=== PATIENT | male | born 1990 | race Caucasian/White ===

== ENCOUNTER 2019-09-14 13:01 | Emergency (ER) | payer MEDICAID, MEDICARE, OTHER ==
[~2019-09-14] VITALS: Ht 193 cm; Wt 151.0 kg
[~2019-09-14 13:01] MED LIST: SERT50TA PO
--- NOTE | 2019-09-14 13:21 | NUR ---
PT CO OF LUMP BEHIND LEFT KNEE. HAS LEFT LEG BKA. THE "LUMP HURTS WHEN MY PROSTETIC LEG IS ON AND IT RUBS THE BUMP"
[2019-09-14] MEDS ORDERED: LIDOCAINE 1%, 10ML ONE (16:50)
--- NOTE | 2019-09-14 17:29 | NUR ---
BREAK RN FOR PRIMARY RN'S JAMILAH. PT BACK FROM IR. DRESSING CDI. DR. GUZMAN AT BEDSIDE FOR RECHECK, DISCUSSING POC. PT RESTING COMFORTABLY. DENIES ANY PAIN AND NEED TO USE RESTROONM. VSS. CALL LIGHT IN REACH.
[2019-09-14 17:30] VITALS: BP 121/61
--- NOTE | 2019-09-14 18:06 | NUR ---
REPORT AND CARE BACK TO PRIMARY RN SEMAJ
== END 2019-09-14 18:14 | disposition home or self-care (01) ==
LOC: ED 14:45
DX: L03.116 Cellulitis of left lower limb (principal); F32.9 Major depressive disorder, single episode, unspecified; F17.290 Nicotine dependence, other tobacco product, uncomplicated
CPT/HCPCS: 10160; 76882; 76942; 87070; 87075; 87076; 87147; 87205; 99284; J3490